=== PATIENT | male | born 2000 | race African-American/Black ===

== ENCOUNTER 2021-11-25 07:26 | Emergency (ER) | payer OTHER ==
[~2021-11-25] VITALS: Ht 175.3 cm; Wt 90.7 kg
[2021-11-25 07:29] VITALS: TEMP 97.8
[2021-11-25 08:19] VITALS: BP 142/77
== END 2021-11-25 08:58 | disposition home or self-care (01) ==
LOC: ED 07:26
DX: S20.211A Contusion of right front wall of thorax, initial encounter (principal); W18.39XA Other fall on same level, initial encounter; W50.0XXA Accidental hit or strike by another person, initial encounter; Y93.66 Activity, soccer; Y92.89 Other specified places as the place of occurrence of the external cause
CPT/HCPCS: 96372; 99283; J2270; J2550